=== PATIENT | female | born 1990 | race African-American/Black ===

== ENCOUNTER 2021-06-13 14:51 | Outpatient (CLI) | payer MEDICAID | END 2021-06-13 14:52 | disposition home or self-care (01) | LOC: CSHULT 14:51 | PROVIDERS: ATTEND Family Medicine | DX: N93.0 Postcoital and contact bleeding (principal); E28.2 Polycystic ovarian syndrome; N83.8 Other noninflammatory disorders of ovary, fallopian tube and broad ligament; R93.89 Abnormal findings on diagnostic imaging of other specified body structures | CPT/HCPCS: 76856 ==

== ENCOUNTER 2023-03-04 07:27 | Outpatient (CLI) | payer OTHER | END 2023-03-04 07:28 | disposition home or self-care (01) | LOC: CSHULT 07:27 | PROVIDERS: ATTEND Family Medicine | DX: R74.01 Elevation of levels of liver transaminase levels (principal); K76.9 Liver disease, unspecified | CPT/HCPCS: 76705 ==

== ENCOUNTER 2023-04-16 22:54 | Emergency (ER) | payer OTHER ==
[2023-04-16] MEDS ORDERED: Dexamethasone 10 MG/ML VIAL ONE (23:36)
== END 2023-04-16 23:56 | disposition home or self-care (01) ==
LOC: CSHERS 22:54
DX: J11.1 Influenza due to unidentified influenza virus with other respiratory manifestations (principal)
CPT/HCPCS: 99283; J1100

== ENCOUNTER 2024-12-23 21:51 | Emergency (ER) | payer OTHER, SELFPAY ==
[2024-12-23] MEDS ORDERED: Ketorolac Tromethamine 30 MG (1 mL) VIAL ONE (22:11)
[2024-12-23 22:22] LABS: #Basophils 0.05 10x3/uL (0.0-0.2); #Eosinophils 0.16 10x3/uL (0.0-0.5); #Monocytes 0.47 10x3/uL (0.0-1.1); #Neutrophils 3.72 10x3/uL (1.5-8.4); %Basophils 0.7 % (0.0-2.0); %Eosinophils 2.3 % (0.0-6.0); %Lymphocytes 35.2 % (18.0-47.0); %Monocytes 6.9 % (0.0-10.0); %Neutrophils 54.8 % (40.0-75.0); Hematocrit 34.0 % (34.9-44.5); Hemoglobin 12.3 g/dL (12.0-15.5); Mean Corpuscular Hemoglobin 31.3 pg (27.0-33.0); Mean Corpuscular Volume 86.5 fL (81.6-98.3); Platelet Count 234 10x3/uL (150-450); Red Blood Cell (RBC) Count 3.93 10x6/uL (3.90-5.03); White Blood Cell (WBC) Count 6.81 10x3/uL (3.5-10.5)
[2024-12-23 22:34] LABS: ALT (SGPT) 52 U/L (Less than 34); AST (SGOT) 45 U/L (11-34); Albumin 4.4 g/dL (3.1-4.5); Alkaline Phosphatase 72 U/L (40-110); Anion Gap 13 mmol/L (10-20); BUN (Urea Nitrogen) 7 mg/dL (7.0-18.7); Bilirubin, Total 0.5 mg/dL (0.3-1.2); Calc. Creatinine Clearance 0 mL/min (70-130); Calcium 8.8 mg/dL (7.8-10.44); Carbon Dioxide 22 mmol/L (22-29); Chloride 106 mmol/L (98-107); Globulin 3.2 g/dL (2.4-3.5); Glucose 122 mg/dL (70-105); Lipase 67 U/L (8-78); Potassium 4.0 mmol/L (3.5-5.1); Sodium 137 mmol/L (136-145)
[2024-12-23 22:40] LABS: Troponin I 0.011 ng/mL (< 0.028)
== END 2024-12-23 23:49 | disposition home or self-care (01) ==
LOC: CSHERS 21:51
DX: M94.0 Chondrocostal junction syndrome [Tietze] (principal)
CPT/HCPCS: 71045; 80053; 83690; 83880; 84484; 85025; 93005; 96374; J1885